=== PATIENT | female | born 1955 | race African-American/Black ===

== ENCOUNTER 2023-05-23 15:09 | Inpatient (IN) | payer MEDICARE, SELFPAY ==
[2023-05-23] MEDS ORDERED: Acetaminophen 325 MG TAB PO PRN (18:00)
[2023-05-23 19:02] LABS: Troponin I 1.357 ng/mL (< 0.028)
[2023-05-23] MEDS ORDERED: Nitroglycerin 0.4 MG TAB (25 Tab Bottle) SL PRN (19:13)
[2023-05-23 20:19] VITALS: BMI 28.1
[2023-05-23] MEDS ORDERED: Ipratropium/Albuterol 3 ML NEB NEB SCH (21:00)
[2023-05-23 21:36] LABS: Troponin I 1.304 ng/mL (< 0.028)
[2023-05-23] MEDS: Metoprolol Tartrate 25 MG TAB PO SCH (21:38)
[2023-05-23] MEDS: Nicotine 14 MG PATCH TD SCH ×2 (21:38→21:42)
[2023-05-23] MEDS: Atorvastatin Calcium 40 MG TAB PO SCH (21:38)
[2023-05-24] MEDS: Ipratropium/Albuterol 3 ML NEB NEB SCH ×4 (01:37→18:56)
[2023-05-24 05:06] LABS: #Basophils 0.1 10x3/uL (0.0-0.2); #Eosinphils 0.3 10x3/uL (0.0-0.5); #Monocytes 1.2 10x3/uL (0.0-1.1); %Basophils 0.9 % (0.0-2.0); %Eosinophils 3.5 % (0.0-6.0); %Lymphocytes 29.1 % (18.0-47.0); %Monocytes 14.9 % (0.0-10.0); %Neutrophils 51.3 % (40.0-75.0); Hematocrit 43.2 % (34.9-44.5); Hemoglobin 13.6 g/dL (12.0-15.5); Mean Corpuscular HGB CONC 31.5 g/dL (32.0-36.0); Mean Corpuscular Volume 79.6 fl (81.6-98.3); Mean Platelet Volume 10.7 fl (7.4-10.4); Platelet Count 280 10x3/uL (150-450); RBC Distribution Width 17.2 % (11.5-14.5); Red Blood Cell (RBC) Count 5.43 10x6/uL (3.90-5.03); White Blood Cell (WBC) Count 7.7 10x3/uL (3.5-10.5)
[2023-05-24 05:25] LABS: Anion Gap 15 mmol/L (10-20); BUN (Urea Nitrogen) 13 mg/dL (9.8-20.1); Calc. Creatinine Clearance 69 mL/min (70-130); Calcium 8.8 mg/dL (7.8-10.44); Carbon Dioxide 30 mmol/L (23-31); Chloride 104 mmol/L (98-107); Estimated GFR 59; Glucose 84 mg/dL (80-115); Sodium 145 mmol/L (136-145)
[2023-05-24] MEDS ORDERED: Losartan 25 MG TAB PO SCH (09:00)
[2023-05-24] MEDS: Aspirin Chewable 81 MG TAB PO SCH (09:57)
[2023-05-24] MEDS: Metoprolol Tartrate 25 MG TAB PO SCH ×2 (09:58→21:29)
[2023-05-24] MEDS ORDERED: cefTRIAXone\\ROCEPHIN 2 GM in Sodium Chloride 0.9% 100 ML IVPB SCH (13:00)
[2023-05-24] MEDS ORDERED: Azithromycin 500 MG in Sodium Chloride 0.9% 250 ML 250 ML IVPB SCH (14:00)
[2023-05-24] MEDS: Atorvastatin Calcium 40 MG TAB PO SCH (21:29)
[2023-05-24] MEDS: Nicotine 14 MG PATCH TD SCH (21:58)
[2023-05-25] MEDS: Ipratropium/Albuterol 3 ML NEB NEB SCH ×2 (01:18→07:10)
[2023-05-25 04:34] LABS: #Basophils 0.1 10x3/uL (0.0-0.2); #Eosinphils 0.3 10x3/uL (0.0-0.5); #Monocytes 1.4 10x3/uL (0.0-1.1); #Neutrophils 4.1 10x3/uL (1.5-8.4); %Basophils 0.9 % (0.0-2.0); %Eosinophils 3.6 % (0.0-6.0); %Lymphocytes 28.1 % (18.0-47.0); %Monocytes 17.3 % (0.0-10.0); Hematocrit 38.2 % (34.9-44.5); Hemoglobin 12.2 g/dL (12.0-15.5); Mean Corpuscular HGB CONC 31.9 g/dL (32.0-36.0); Mean Corpuscular Hemoglobin 25.2 pg (27.0-33.0); Mean Corpuscular Volume 78.8 fl (81.6-98.3); Mean Platelet Volume 10.7 fl (7.4-10.4); Platelet Count 263 10x3/uL (150-450); RBC Distribution Width 16.6 % (11.5-14.5); Red Blood Cell (RBC) Count 4.85 10x6/uL (3.90-5.03); White Blood Cell (WBC) Count 8.2 10x3/uL (3.5-10.5)
[2023-05-25 04:39] LABS: Anion Gap 14 mmol/L (10-20); BUN (Urea Nitrogen) 11 mg/dL (9.8-20.1); Calc. Creatinine Clearance 83 mL/min (70-130); Calcium 8.5 mg/dL (7.8-10.44); Carbon Dioxide 26 mmol/L (23-31); Chloride 104 mmol/L (98-107); Estimated GFR 73; Glucose 87 mg/dL (80-115); Potassium 3.5 mmol/L (3.5-5.1); Sodium 140 mmol/L (136-145)
[2023-05-25] MEDS ORDERED: Losartan 25 MG TAB PO SCH (09:00)
[2023-05-25] MEDS: Aspirin Chewable 81 MG TAB PO SCH (09:32)
[2023-05-25] MEDS: Metoprolol Tartrate 25 MG TAB PO SCH (09:32)
[2023-05-25] MEDS ORDERED: Azithromycin 250 MG TAB PO SCH (12:00)
[2023-05-25] MEDS ORDERED: predniSONE 20 MG TAB PO SCH (12:00)
[2023-05-25 12:16] VITALS: BP 126/58; TEMP 97.8
[2023-05-25] MEDS ORDERED: cefTRIAXone\\ROCEPHIN 2 GM in Sodium Chloride 0.9% 100 ML IVPB SCH (13:00)
== END 2023-05-25 13:40 | disposition home or self-care (01) | DRG 871 ==
LOC: CSHTELE 17:15
PROVIDERS: ADMIT Internal Medicine; ATTEND Internal Medicine
DX: A41.9 Sepsis, unspecified organism (principal); I21.4 Non-ST elevation (NSTEMI) myocardial infarction; J18.9 Pneumonia, unspecified organism; I50.23 Acute on chronic systolic (congestive) heart failure; I42.9 Cardiomyopathy, unspecified; J44.0 Chronic obstructive pulmonary disease with (acute) lower respiratory infection; R65.20 Severe sepsis without septic shock; I11.0 Hypertensive heart disease with heart failure; E78.5 Hyperlipidemia, unspecified; F17.210 Nicotine dependence, cigarettes, uncomplicated; I25.10 Atherosclerotic heart disease of native coronary artery without angina pectoris; I27.20 Pulmonary hypertension, unspecified; I48.0 Paroxysmal atrial fibrillation; I25.2 Old myocardial infarction; Z95.810 Presence of automatic (implantable) cardiac defibrillator; Z98.51 Tubal ligation status; Z95.2 Presence of prosthetic heart valve; Z95.5 Presence of coronary angioplasty implant and graft
CPT/HCPCS: 36415; 71046; 80048; 83880; 84439; 84443; 84484; 85025; 87070; 87205; 93005; 93010; 93306; 94640; 94760; J0456; J0696; J1650; J3490; J7050; J7512; J7620